=== PATIENT | male | born 2000 | race Caucasian/White ===

== ENCOUNTER 2025-01-23 19:04 | Emergency (ER) | payer OTHER ==
[~2025-01-23] VITALS: Ht 180.3 cm; Wt 70.0 kg
[2025-01-23 19:09] VITALS: O2SAT 98
[2025-01-23 19:49] LABS: GLUCOSE URINE NEGATIVE (NEGATIVE); KETONES URINE TRACE (NEGATIVE); LEUKOCYTE ESTERASE URINE 3+ (NEGATIVE); NITRITE URINE NEGATIVE (NEGATIVE); OCCULT BLOOD URINE 3+ (NEGATIVE); PH URINE 6.0 (4.5-8.0); PROTEIN URINE TRACE (NEGATIVE); SPECIFIC GRAVITY URINE 1.003 (1.005-1.030); UROBILINOGEN URINE 0.2 E.U./dL (0.2-1.0)
[2025-01-23] MEDS ORDERED: SULF1TAB48 MT (19:59)
[2025-01-23 20:02] LABS: CLARITY URINE SL HAZY (CLEAR); COLOR URINE STRAW (YELLOW)
[2025-01-23 20:04] LABS: RBC URINE 0-2 /hpf (0-2); SQUAMOUS EPITHELIAL CELL URINE RARE /lpf (RARE/1+); WBC URINE 50-100 /hpf (0-2)
[2025-01-23 20:05] LABS: BACTERIA URINE TRACE; MUCUS URINE TRACE /lpf (NONE/TRACE)
[2025-01-23 20:33] VITALS: BP 139/84; PULSE 74; RESP 15; TEMP 37.2; O2SAT 99
[2025-01-27 04:09] LABS: CHLAMYDIA TRACHOMATIS NAA Negative (Negative); NEISSERIA GONORRHOEAE NAA Negative (Negative)
== END 2025-01-23 20:33 | disposition home or self-care (01) ==
LOC: ER 19:04
DX: N39.0 Urinary tract infection, site not specified (principal)
CPT/HCPCS: 81003; 87077; 87186; 87491; 87591; 99283